=== PATIENT | female | born 1935 | race Asian ===

== ENCOUNTER 2018-04-04 06:24 | Emergency (ER) | payer MEDICARE ==
[~2018-04-04] VITALS: Ht 157.5 cm; Wt 46.5 kg
[~2018-04-04 06:24] MED LIST: AMOXICILLIN500 M1 PO; ANT12.5 PO; ASPIR 8181 MG PO; B COMPLEX1 SGL PO; CALTRATE 600600 MG PO; CENTRUM SILVER1 TAB PO; FOSAMAX70 MG PO; HYDROCHLOROTHIA25 MG PO; MAC100 PO; PRA20 PO; VALIUM2 MG PO; VERAPAMIL HYDR240 MG PO
[2018-04-04 07:25] LABS: UA SPECIFIC GRAVITY 1.015 (1.005-1.035); microscopic required? YES; urine erythrocyte 1+ (NEGATIVE)
[2018-04-04 07:40] LABS: PLATELET COUNT 516 x10^3mcL (130-400); RED CELL DISTRIBUTION WIDTH 15.3 % (11.5-14.5)
[2018-04-04 07:56] LABS: ALBUMIN 3.9 g/dL (3.4-5.0); ALKALINE PHOSPHATASE 65 U/L (46-116); ALT/SGPT 29 U/L (14-59); AMYLASE 104 U/L (25-115); AST/SGOT 20 U/L (15-37); BILIRUBIN TOTAL 0.36 mg/dL (0.20-1.00); CALCIUM 9.3 mg/dL (8.5-10.1); CARBON DIOXIDE 31.7 mmol/L (21-32); CHLORIDE SERUM 93 mmol/L (98-107); CHOLESTEROL 177 mg/dL (<200); CREATININE SERUM 0.7 mg/dL (0.6-1.0); GLUCOSE SERUM 117 mg/dL (74-106); LIPASE 363 IU/L (73-393); MAGNESIUM 2.2 mg/dL (1.8-2.4); POTASSIUM SERUM 3.7 mmol/L (3.5-5.1); SODIUM SERUM 133 mmol/L (136-145); T4(THYROXINE) 10.6 ug/dL (4.7-13.3)
[2018-04-04 07:56] LABS: AMPHETAMINE QUAL UR NONE DETECTED (See below)
[2018-04-04 08:00] LABS: HDL CHOLESTEROL 72 mg/dL (40-60); TOTAL PROTEIN, SERUM 8.5 g/dL (6.4-8.2)
[2018-04-04 08:08] LABS: BAND NEUTROPHIL 0 % (0-10); BASOPHIL 0 % (0-2); MONOCYTE 4 % (0-7); SEGMENTED NEUTROPHILS 86 % (37-75)
[2018-04-04 08:09] LABS: PLATELET MORPHOLOGY PLATELETS INCREASED; rbc morphology (normal/abnorm) ABNORMAL (NORMAL)
[2018-04-04 11:11] VITALS: BP 125/67
== END 2018-04-04 11:12 | disposition home or self-care (01) ==
LOC: ED 06:24
PROVIDERS: Emergency Medicine
DX: F41.9 Anxiety disorder, unspecified (principal); R03.0 Elevated blood-pressure reading, without diagnosis of hypertension; Z90.710 Acquired absence of both cervix and uterus; M81.0 Age-related osteoporosis without current pathological fracture
CPT/HCPCS: 36415; 83880; J7040; Q0092

== ENCOUNTER 2019-07-03 22:46 | Emergency (ER) | payer MEDICARE ==
[~2019-07-03] VITALS: Ht 154.9 cm; Wt 46.3 kg
[2019-07-03 22:51] VITALS: Ht 154.9 cm; Wt 46.3 kg
[2019-07-04 00:25] VITALS: BP 105/69
== END 2019-07-04 00:25 | disposition home or self-care (01) ==
LOC: ED 22:46
DX: S62.614A Displaced fracture of proximal phalanx of right ring finger, initial encounter for closed fracture (principal); I10 Essential (primary) hypertension; Z90.710 Acquired absence of both cervix and uterus; W01.0XXA Fall on same level from slipping, tripping and stumbling without subsequent striking against object, initial encounter; Y93.89 Activity, other specified; Y92.89 Other specified places as the place of occurrence of the external cause; Y99.8 Other external cause status
CPT/HCPCS: A4570; J1885; Q0092